=== PATIENT | male | born 1955 | race Caucasian/White ===

== ENCOUNTER 2017-11-07 11:01 | Observation (INO) | payer OTHER ==
[~2017-11-07] VITALS: Ht 177.8 cm; Wt 108.0 kg
[~2017-11-07 11:01] MED LIST: AMLO10 PO; AMOCLA875 PO; AMPDEX10 PO; AMPDEX30CR PO; ATOR40TA PO; ATOR80 PO; DOCU100 PO; FISH1000 PO; FURO20; IRBE75 PO; Keflex500 MG PO; LISI20 PO; LISI5 PO; METO100ER PO; OXYACE5T PO; POTA10T; Percocet 10-321 EACH PO; SILD50TA PO
[2017-11-07] MEDS ORDERED: HYDCHL25 PO (12:43)
[2017-11-07] MEDS ORDERED: Bactrim Ds Tab1 EACH PO (19:15)
[2017-11-07] MEDS ORDERED: HYDR1TAB94 PO (19:15)
== END 2017-11-07 21:10 | disposition home or self-care (01) ==
LOC: ER 11:01 → SURS 11:02
PROVIDERS: Orthopaedic Surgery
PROC: 0PBV0ZZ Excision of Left Finger Phalanx, Open Approach (ICD-10-PCS; principal; 2017-11-07 09:45)
DX: S68.617A Complete traumatic transphalangeal amputation of left little finger, initial encounter (principal); I10 Essential (primary) hypertension; E78.5 Hyperlipidemia, unspecified; W23.0XXA Caught, crushed, jammed, or pinched between moving objects, initial encounter; F90.1 Attention-deficit hyperactivity disorder, predominantly hyperactive type; Z98.890 Other specified postprocedural states; Z79.899 Other long term (current) drug therapy; Y93.89 Activity, other specified; Y92.9 Unspecified place or not applicable
CPT/HCPCS: 64450; 73120; 90471; 90714; 96361; 96374; 96375; 99285-25; G0378; J0690; J2001; J2250; J2405; J3010; J7030; J7120

== ENCOUNTER → 2022-08-12 | Outpatient (CLI) | payer OTHER ==
[~2022-08-12] MED LIST changes: +Bactrim Ds Tab1 EACH PO; +HYDCHL25 PO; +HYDR1TAB94 PO
[2022-08-17 10:31] LABS: Stool Occult Bld Immuno 1 Negative (NEGATIVE); Stool Occult Bld Immuno 2 Negative (NEGATIVE)
== END ==
LOC: LAB 11:50 → LAB SHORT 11:50
PROVIDERS: Internal Medicine Gastroenterology
DX: Z12.11 Encounter for screening for malignant neoplasm of colon (principal); Z86.010 Personal history of colon polyps
CPT/HCPCS: 82274